=== PATIENT | female | born 2000 ===

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

== ENCOUNTER 2018-06-12 13:17 | Emergency (ER) | payer MEDICAID ==
[2018-06-12 13:43] VITALS: RESP 16
[2018-06-12] MEDS ORDERED: Sodium Chloride 0.9% 1,000 ML IV STA (14:25)
--- NOTE | 2018-06-12 14:49 | ED PDOC ---
HPI: Abdomen Time Seen by Provider: 06/12/18 14:21 Chief Complaint (Nursing): GI Problem Chief Complaint (Provider): GI Problem History Per: Patient History/Exam Limitations: no limitations Onset/Duration Of Symptoms: Days Current Symptoms Are (Timing): Still Present Associated Symptoms: Nausea, Vomiting Additional Complaint(s): 18 year old female with no past medical history who is and is presenting to the ED for evaluation of nausea and vomiting ongoing for 3 days. Patient admits that she had a positive test and a LMP of 3/3. She denies any abdominal pain or vaginal bleeding. Patient offers no other medical complaints at this time. PMD: none provided Past Medical History Reviewed: Historical Data, Nursing Documentation, Vital Signs Vital Signs: Last Vital Signs Temp 98.4 F 06/12/18 13:37 Pulse 79 06/12/18 13:37 Resp 16 06/12/18 13:37 BP 103/67 06/12/18 13:37 Pulse Ox 98 06/12/18 13:37 - Medical History PMH: No Chronic Diseases - Surgical History Surgical History: No Surg Hx - Family History Family History: States: Unknown Family Hx - Social History Current smoker - smoking cessation education provided: No Alcohol: None Drugs: Denies - Immunization History Hx Tetanus Toxoid Vaccination: No Hx Influenza Vaccination: No Hx Pneumococcal Vaccination: No - Home Medications Home Medications: Ambulatory Orders Medication Instructions Recorded Ondansetron [Zofran] 4 mg PO Q8H #10 tab 12/22/15 Doxylamine/Pyridoxine HCl (B6) 1 - 2 each PO HS #16 tablet. 01/05/16 [Tanna Rollins 10-10 mg Tablet] Nitrofurantoin Macrocrystals 100 mg PO BID #14 cap 01/05/16 [Macrobid] Oseltamivir Phosphate [Tamiflu] 75 mg PO BID #10 capsule 03/30/16 Doxylamine/Pyridoxine HCl (B6) 1 each PO DAILY #15 tablet. 06/12/18 [Tanna Rollins 10-10 mg Tablet] - Allergies Allergies/Adverse Reactions: Allergies Allergy/AdvReac Type Severity Reaction Status Date / Time No Known Allergies Allergy Verified 06/12/18 13:38 Review of Systems ROS Statement: Except As Marked, All Systems Reviewed And Found Negative Gastrointestinal: Positive for: Nausea, Vomiting. Negative for: Abdominal Pain Genitourinary Female: Negative for: Vaginal Bleeding Physical Exam - Reviewed Nursing Documentation Reviewed: Yes Vital Signs Reviewed: Yes - Physical Exam Appears: Positive for: Non-toxic, No Acute Distress Head Exam: Positive for: ATRAUMATIC, NORMAL INSPECTION, NORMOCEPHALIC Skin: Positive for: Normal Color, Warm, DRY Eye Exam: Positive for: EOMI, Normal appearance, PERRL ENT: Positive for: Normal ENT Inspection, Other (moist mucous membranes ) Cardiovascular/Chest: Positive for: Regular Rate, Rhythm. Negative for: Murmur Respiratory: Positive for: Normal Breath Sounds. Negative for: Respiratory Distress Gastrointestinal/Abdominal: Positive for: Normal Exam, Soft. Negative for: Tenderness Back: Positive for: Normal Inspection. Negative for: L CVA Tenderness, R CVA Tenderness, Vertebral Tenderness Extremity: Positive for: Normal ROM. Negative for: Deformity, Swelling Neurological/Psych: Positive for: Awake, Alert, Normal Tone, Oriented. Negative for: Motor/Sensory Deficits - Laboratory Results Result Diagrams: 06/12/18 15:05 06/12/18 15:05 - ECG O2 Sat by Pulse Oximetry: 98 (RA) Pulse Ox Interpretation: Normal - Progress Re-evaluation Time: 16:20 Condition: Improved (Tolerating PO) Medical Decision Making Medical Decision Making: Time: 14:30 Plan: --Beta-HCG, Quantitative --CMP --CBC --IV Fluids --Urinalysis Scribe Attestation: Documented by Nunu Hair, acting as a scribe for Marcus Carney MD. Provider Scribe Attestation: All medical record entries made by the Scribe were at my direction and personally dictated by me. I have reviewed the chart and agree that the record accurately reflects my personal performance of the history, physical exam, medical decision making, and the department course for this patient. I have also personally directed, reviewed, and agree with the discharge instructions and disposition. Disposition - Clinical Impression Clinical Impression: Hyperemesis gravidarum - Patient ED Disposition Is Patient to be Admitted: No Counseled Patient/Family Regarding: Studies Performed, Diagnosis, Need For Followup, Rx Given - Disposition [facility] Disposition: Routine/Home Disposition Time: 16:22 Condition: FAIR Prescriptions: Doxylamine/Pyridoxine HCl (B6) [Tanna Rollins 10-10 mg Tablet] 1 each PO DAILY #15 tablet. Instructions: Hyperemesis Gravidarum Forms: [facility] (Uzbek) Print Language: SETSWANA
[2018-06-12 15:29] LABS: BASO % 0.3 % (0.0-2.0); EOS % 0.2 % (0.0-4.0); HEMOGLOBIN 15.1 g/dL (12.0-16.0); LYMPH # 1.2 K/uL (1.0-4.3); LYMPH % 14.5 % (20.0-40.0); MEAN CELL VOLUME 88.2 fl (81.0-99.0); MEAN CORPUSCULAR HEMOGLOBIN 30.1 pg (27.0-31.0); MEAN CORPUSCULAR HGB CONC 34.1 g/dL (33.0-37.0); MEAN PLATELET VOLUME 8.2 fl (7.2-11.7); MONO # 0.4 K/uL (0.0-0.8); MONO % 5.3 % (0.0-10.0); NEUT # 6.6 K/uL (1.8-7.0); NEUT % 79.7 % (50.0-75.0); NRBC % 0.1 % (0.0-0.0); RED CELL DISTRIBUTION WIDTH 13.3 % (11.5-14.5); WHITE BLOOD COUNT 8.3 K/uL (4.8-10.8)
[2018-06-12 15:32] LABS: ALB/GLOB RATIO 1.6 (1.0-2.1); ALBUMIN 4.8 g/dL (3.5-5.0); ALT/SGPT 26 U/L (9-52); AST/SGOT 29 U/L (14-36); BLOOD UREA NITROGEN 13 mg/dl (7-17); CALCIUM 9.5 mg/dL (8.4-10.2); GFR NON-AFRICAN AMERICAN > 60
[2018-06-12 16:40] VITALS: BP 97/53; PULSE 74; TEMP 99; O2SAT 100
== END 2018-06-12 16:23 | disposition home or self-care (01) ==
LOC: H.ER 13:17
DX: O21.0 Mild hyperemesis gravidarum (principal)
CPT/HCPCS: 80053; 84702; 85025; 99284; J7030